=== PATIENT | male | born 1995 | race Caucasian/White ===

== ENCOUNTER 2024-02-23 08:12 | Day surgery (SDC) | payer MEDICAID, SELFPAY ==
--- NOTE | 2024-02-22 22:37 | HP.PCM_ITS ---
History and Physical Date of Admission: 02/23/24 HISTORY OF PRESENT ILLNESS 29 year old man presents initially with an enlarging painful soft tissue mass on his right anterior earlobe that worsened over the last several months. It is painful intermittently. When the mass decreases in size, his pain improves as well. He denies trauma. He denies recent infection. He denies drainage. There is no history of piercing in the area of the soft tissue mass. He presents at this time for further evaluation and treatment. 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 ALLERGIES No Known Allergies MEDICATIONS NK FAMILY HISTORY Alcoholism Anxiety Diabetes SOCIAL HISTORY Smoking Status: Current every day smoker alcohol intake: current substance use type: does not use REVIEW OF SYSTEMS General - Denies fever, fatigue, and weight loss. Eyes - Denies cataracts and glaucoma. ENT - Denies nasal congestion and sore throat. Endocrine - Denies excessive thirst and urination. Skin - Denies suspicious lesions and skin cancer. Has enlarging soft tissue mass right anterior earlobe. Musculoskeletal - Denies joint pain, joint stiffness, weakness of muscles and joints, back pain, and arthritis. Neuro - Denies headaches. Cardiovascular - Denies chest pain, fatigue, and shortness of breath with exertion. Psych - Denies anxiety and depression. Respiratory - Denies chronic cough and shortness of breath. Patient vapes. Gastrointestinal - Denies nausea, vomiting, diarrhea, and constipation. Hematologic - Denies abnormal bruising and bleeding. Genitourinary - Denies hematuria and urinary frequency. PHYSICAL EXAMINATION General - Alert and Oriented. HEENT - PERRL. EOMI. Throat is clear. On the right anterior earlobe is a soft tissue mass that measures 1 cm. It is mobile. No ulceration. The mass is nontender today. Patient states when it enlarges it becomes painful. No redness, fluctuance, or purulent drainage. No swelling present. No other suspicious lesions noted. Neck - Supple and nontender. No cervical adenopathy. No suspicious lesions noted. Lungs - Clear to auscultation. Heart - Regular rate and rhythm. Abdomen - Soft and nondistended. Extremities - FROM. No axillary adenopathy. Radial pulses are palpable. No suspicious lesions noted. Neuro - CN II-XII grossly intact. Psych - Normal mood and affect. ASSESSMENT 1. 1 cm painful (when it enlarges) soft tissue mass right anterior earlobe. 2. Vaping, nicotine dependent. PLAN Patient has a soft tissue mass right anterior earlobe. When it enlarges it becomes painful. When it decreases in size, it is not painful. There is no evidence of infection at this time. Recommend excision of this mass and send it to Pathology for analysis to rule out carcinoma. if pus is seen at surgery, then will obtain a wound culture. Since the mass is stable at this time it doesn't have to be removed. When it decreases in size, patient states it is not noticeable. However, the best time to remove these masses is when there is no infection. The incision can then be closed primarily. If an infection is present, the mass can still be removed. However, the wound would be left open and Silver dressing changes started until healed. Patient wants to proceed with excision at this time. Surgery can be done on an outpatient basis under local anesthesia and IV sedation or general anesthesia. Patient was informed of the risks and complications of the procedure including alternatives to surgery. These were discussed with the patient personally. Patient voices understanding and wishes to proceed. Some of the risks and complications were included in a form from the [employer]. Potential risks and complications included but not inclusive of bleeding, infection, seroma, hematoma, bruising, swelling, loss of sensation to skin, wound breakdown, need for wound care, poor scarring, poor aesthetic outcome, intra operative cardiac or neurologic events, DVT, PE, and reaction to anesthesia. Encouraged patient to stop smoking/vaping as it may have deleterious effects on wound healing. Assessment & Plan Assessment/Plan (1) Mass of right ear auricle: (2) Dysesthesia: (3) Vaping nicotine dependence, non-tobacco product:
[2024-02-23] VITALS (7 sets, daily range): BP systolic 125–143; BP diastolic 66–78; PULSE 74–83; RESP 16–18; TEMP 36.5–37.7; O2SAT 92–97; BMI 36.0
[2024-02-23] MEDS: Lactated Ringers 1,000 ML 15 ML IV (09:03)
--- NOTE | 2024-02-23 10:00 | CYST_PTH ---
PATIENT: YOVANY KEATING LOC: [facility] – [place], [place] U#:[id number] AGE/SX: 29/M ROOM: RE02/23/[address]: Dr. Kennedy Esteban MD : 1995 BED: DIS: 02/23/2024 SPEC #: [id number] RECD: 02/23/24 13:30 STATUS: LAVERNE REBrianne #: [id number] NIKOLAI: 02/23/24 10:[address]: Kennedy Esteban DEPT: SURGICAL PATHOLOGY RECD BY: Radha Espinosa ENTERED: 02/23/24 14:25 SP TYPE: Cyst OTHR DR: JOAN Cortez Tissues: CYST Procedures: Surgery Specimen Level III HEADER OPERATION: Excision painful soft tissue mass anterior earlobe PRE-OP DIAGNOSIS: Mass of right ear auricle TISSUE SUBMITTED: Chronic infected cyst right ear MICROSCOPIC DIAGNOSIS Cyst of right ear, excision: Epidermal inclusion cyst. AM/mr 02/26/2024 MICROSCOPIC DESCRIPTION Slides are reviewed. GROSS DESCRIPTION Received in fixative is one container labeled with the patient's name and designated Chronic infected cyst right ear. The specimen consists of a piece of pink soft tissue measuring 1.5 x 0.5 x 0.5cm. The entire specimen is submitted in one cassette. DIANA/ 02/23/24 TC:5 CPT: 44109
[2024-02-23] MEDS: Clindamycin 900 MG/50 ML BAG 75 MG IV (10:20)
[2024-02-23] MEDS: Lidocaine 1% /Epi 1:100 (20ml) 20 ML Vial (10:36)
[2024-02-23] MEDS: Mupirocin Ointment 22gm Tube 1 APPLIC (10:51)
--- NOTE | 2024-02-23 11:04 | OP.PCM_ITS ---
Problems Associated Problem List Diagnoses (1) Mass of right ear auricle: (2) Dysesthesia: (3) Vaping nicotine dependence, non-tobacco product: (4) Infected cyst of skin: Report of Operation Date of Procedure: 02/23/24 Pre-Operative Diagnosis: 1. 1 cm painful soft tissue mass right anterior earlobe. 2. Vaping, nicotine dependent. Post-Operative Diagnosis: 1. 1 cm painful chronically infected soft tissue mass right anterior earlobe. 2. Vaping, nicotine dependent. Surgery/Procedure Performed:: Excision and repair 1 cm painful chronically infected soft tissue mass right anterior earlobe. Description of Surgical Findings:: 29 year old man presents initially with an enlarging painful soft tissue mass on his right anterior earlobe that worsened over the last several months. It is painful intermittently. When the mass decreases in size, his pain improves as well. He denies trauma. He denies recent infection. He denies drainage. There is no history of piercing in the area of the soft tissue mass. He presents at this time for further excision of this soft tissue mass right anterior earlobe. Patient was informed of the risks and complications of the procedure including alternatives to surgery. These were discussed with the patient personally. Patient voices understanding and wishes to proceed. Some of the risks and complications were included in a form from the [employer]. Potential risks and complications included but not inclusive of bleeding, infection, seroma, hematoma, bruising, swelling, loss of sensation to skin, woun d breakdown, need for wound care, poor scarring, poor aesthetic outcome, intra operative cardiac or neurologic events, DVT, PE, and reaction to anesthesia. Encouraged patient to stop smoking as it may have deleterious effects on wound healing. Surgeon: Kennedy Esteban MD controller repairer and tester: Jules Grewal RNFA Type of Anesthesia: General Anesthesiologist: Luis Alvarez MD and Zayda francis CRNA Specimen's removed: Painful chronically infected soft tissue mass right anterior earlobe to Pathology and Microbiology. Drains: None. Estimated Blood Loss (mL): 2. Description of Procedure: Patient was taken to OR in supine position and was placed under general anesthesia. The right ear and face were prepped and draped in the usual fashion. SCD's were placed for DVT prophylaxis. Perioperative antibiotics were given intravenously. Using xylocaine with epinephrine, the mass was infiltrated. After waiting 5 minutes for the anesthetic to take effect, an oblique elliptical incision was made over the mass on the anterior aspect of the earlobe. Some of the mass was adherent to the overlying skin. It was sharply dissected free from the underlying subcutaneous tissue. It did not extend to the posterior earlobe. It looked like a cyst. The contents of this cyst was milky that looked purulent. After excision, the cyst was sent to Pathology for analysis to rule out carcinoma and to Microbiology for culture. A positive culture will necessitate antibiotic therapy. Hemostasis was obtained with electrocautery. Irrigation was done with saline. The wound can be closed primarily without causing any distortion of the earlobe. The deep dermis and subcutaneous tissue was approximated with 5-0 Monocryl interrupted sutures. The skin was approximated with 6-0 Prolene simple interrupted sutures. Antibiotic ointment was applied. No clinical evidence of hematoma as the earlobe was soft at the end of the surgery. Patient tolerated the procedure well and was sent to PACU in satisfactory condition. Patient will be sent home on antibiotics and pain medication. He will keep his head elevated during the initial postoperative period. Patient will followup next week for a wound check and for discussion of the pathology report and for discussion of the Microbiology report. A positive culture would necessitate further antibiotic therapy. The sutures will be removed in 2 weeks. Procedure Start Time: 10:36 Procedure Stop Time: 11:09 Complications None. Admit VTE Documentation VTE Mechan Device Prophylaxis: SCD's Addendum Addendum: Surgery Charges CPT - 32325 ICD-10 - H93.8x1, R20.8, L72.9, L08.9, F17.200
--- NOTE | 2024-02-23 11:13 | DCINST_ITS ---
Discharge Instructions Diet Discharge Diet: No restrictions Activity Discharge Activity: May Shower (in two days.) and - (keep head elevated. 20 lb lifting restriction for one week.) May shower in (days): 2 May resume sexual activity in: No Restrictions (after 3 days.) Ice area for (Minutes): 5 (as needed for facial swelling.) Weight Bearing Status: Weight bearing as tolerated Lifting Restrictions: 20 lbs. Keep extremity elevated above heart level: - (elevate head) Additional Activity Instructions:: if swelling occurs, apply bimanual pressure. Dressing / Incision Call your doctor if your incision/area has: Continuous Slow Oozing, Sudden Increased Bleeding, Increased Pain/ Swelling, Increased Redness, Foul Smelling Discharge and Swelling at the incision site Call your doctor if you observe: Fever of 101 or Higher, Coldness, Increased Pain, Shortness of breath, Chest pain, Calf discomfort and Uncontrolled pain Suture Line Care: - (apply antibiotic ointment to suture line daily. Wipe off old ointment each day before applying new ointment. will remove the sutures in 2 weeks.) Cleanse incision/area with: Do not get Incision Wet (for two days, then may shower.) and - (may shower in two days.) Follow Up Care Please Follow Up With: Kennedy Esteban MD When: next week (Monday or Monday). call [phone] for appt. Test Results: Test results from this visit will be discussed in further detail at your follow- up appointment, if applicable. Discharge Plan Admission Primary Reason for Your Visit: excision painful chronically infected mass right anterior earlobe Attending Provider: Kennedy Esteban Primary Care Provider: Jno Mitchell Discharge Orders/Prescriptions Prescriptions: New clindamycin HCl [Cleocin HCl] 300 mg capsule 300 mg PO TID Qty: 21 0RF L.acidoph,saliva-B.bif-S.therm [Acidophilus Probiotic Blend] 175 mg capsule 1 cap PO DAILY Qty: 10 0RF oxycodone-acetaminophen [Percocet] 5-325 mg tablet 1 tab PO Q6H PRN (Reason: pain (scale score 7-10)) 3 Days Qty: 12 0RF Rx Instructions: 12 tabs (twelve) No Action hydroxyzine HCl 25 mg tablet 25 mg PO DAILY Patient Comments: Take 1 tablet by mouth 3 times daily as needed for Anxiety. aripiprazole 5 mg tablet 5 mg PO DAILY Patient Comments: Take 1 tablet by mouth at bedtime as needed. sucralfate 1 gram tablet 1 g PO QHS Patient Comments: Take 1 tablet by mouth at bedtime. pantoprazole 40 mg tablet,delayed release (DR/EC) 40 mg PO DAILY Patient Comments: Take 1 tablet by mouth daily every morning. Referrals / Follow Up: Kennedy Esteban MD [Med Staff - Active Staff] - (followup next week.) Jon Mitchell PA [Primary Care Provider] - Disposition Disposition (needs filled in before D/C Order can be placed): Home, Self Care
== END 2024-02-23 12:46 | disposition home or self-care (01) ==
LOC: SDC 08:15 → AC 08:16
PROVIDERS: PCP Physician Assistant; Referring Provider Physician Assistant; Visit Provider Surgery
PROC: (CPT 11441; principal; 2024-02-23 09:50)
DX: L72.0 Epidermal cyst (principal); R20.8 Other disturbances of skin sensation; F17.200 Nicotine dependence, unspecified, uncomplicated; K21.9 Gastro-esophageal reflux disease without esophagitis; Z79.899 Other long term (current) drug therapy
CPT/HCPCS: 11441; 12051; 00300; 87015; 87070; 87075; 87077; 87102; 87116; 87186; 87205; 87206; 88304; J7120; J2405